=== PATIENT | male | born 1955 | race African-American/Black ===

== ENCOUNTER 2022-01-24 03:26 | Emergency (ER) | payer OTHER ==
[~2022-01-24] VITALS: Ht 170.2 cm; Wt 68.0 kg
[~2022-01-24 03:26] MED LIST: cannabis
--- NOTE | 2022-01-24 04:00 | NUR ---
CALLED FOR TRIAG. NO ANSWER
[2022-01-24 04:36] VITALS: BP 155/91
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
== END 2022-01-24 04:59 | disposition left against medical advice (07) ==
LOC: ER 03:27
DX: Z53.21 Procedure and treatment not carried out due to patient leaving prior to being seen by health care provider (principal)

== ENCOUNTER 2022-01-28 08:36 | Emergency (ER) | payer OTHER ==
[~2022-01-28] VITALS: Ht 170.2 cm; Wt 68.0 kg
[2022-01-28 08:49] VITALS: BP 147/83
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
--- NOTE | 2022-01-28 09:04 | NUR ---
DR TORRE W/ PT FOR EVAL
--- NOTE | 2022-01-28 09:15 | NUR ---
Patient discharged to home in stable condition. Written and verbal after care instructions given. Patient verbalizes understanding of instruction.
== END 2022-01-28 09:32 | disposition home or self-care (01) ==
LOC: ER 08:38
DX: S40.011A Contusion of right shoulder, initial encounter (principal); Z60.2 Problems related to living alone; F17.200 Nicotine dependence, unspecified, uncomplicated; Y08.89XA Assault by other specified means, initial encounter; Y93.89 Activity, other specified; Y92.89 Other specified places as the place of occurrence of the external cause; Y99.8 Other external cause status